=== PATIENT | female | born 1940 | race Caucasian/White ===

== ENCOUNTER 2017-03-31 12:57 | Day surgery (SDC) | payer MEDICARE, OTHER ==
[~2017-03-31] VITALS: Ht 157.5 cm; Wt 62.3 kg
[~2017-03-31 12:57] MED LIST: BUSP10TA11 PO; FENO145T38 PO; GABA-338 PO; HYDR1TAB PO; METH500T PO; OLME1TAB22 PO; RABE20TA25 PO; VERA180T PO; WEL625T PO; ZOC40T PO; ZOF4T PO
[2017-03-31 13:10] VITALS: BP 192/85
[2017-03-31] MEDS ORDERED: fentaNYL/PF 50MCG/1 ML 2ML syringe ONE (13:29)
[2017-03-31] MEDS ORDERED: MIDAZolam 5mg/ml 2ml vial ONE (13:29)
[2017-03-31] MEDS ORDERED: LISI-600 PO (13:36)
[2017-03-31] MEDS ORDERED: HYDR-3972 PO (13:37)
[2017-03-31] MEDS ORDERED: DULO-31 PO (13:37)
[2017-03-31 14:05] VITALS: BP 145/48
[2017-03-31 14:15] VITALS: BP 166/45
[2017-03-31 14:25] VITALS: BP 136/96
== END 2017-03-31 15:00 | disposition home or self-care (01) ==
LOC: GI LAB 12:57
PROVIDERS: ATTEND Internal Medicine Gastroenterology
DX: D12.0 Benign neoplasm of cecum (principal); K64.8 Other hemorrhoids; K57.30 Diverticulosis of large intestine without perforation or abscess without bleeding
CPT/HCPCS: 45380; G0500; J2250; J3010; A4620

== ENCOUNTER 2017-12-28 21:55 | Inpatient (IN) | payer MEDICARE, OTHER ==
[~2017-12-28] VITALS: Ht 157.5 cm; Wt 66.8 kg
[~2017-12-28 21:55] MED LIST changes: -BUSP10TA11 PO; +DULO-31 PO; -FENO145T38 PO; -GABA-338 PO; +HYDR-3972 PO; -HYDR1TAB PO; +LISI-600 PO; -OLME1TAB22 PO; -RABE20TA25 PO; -WEL625T PO; -ZOC40T PO; -ZOF4T PO
[2017-12-28 22:28] LABS: BASOPHILS # (AUTO) 0.1 X10'3 (0-0.2); BASOPHILS % (AUTO) 1.2 % (0-1); EOSINOPHILS # (AUTO) 0.2 X10'3 (0-0.9); EOSINOPHILS % (AUTO) 1.8 % (0-6); HEMATOCRIT 45.3 % (35.0-45.0); LYMPHOCYTES # (AUTO) 2.3 X10'3 (1.1-4.8); LYMPHOCYTES % (AUTO) 19.4 % (21-51); MEAN CORPUSCULAR HEMOGLOBIN 29.4 PG (27.0-31.0); MEAN PLATELET VOLUME 8.8 FL (7.4-10.4); MONOCYTES # (AUTO) 0.9 X10'3 (0-0.9); MONOCYTES % (AUTO) 7.6 % (2-12); NEUTROPHILS # (AUTO) 8.4 X10'3 (1.8-7.7); PLATELET COUNT 295 X10'3 (140-440); RED BLOOD COUNT 5.09 X10'6 (4.20-5.60); RED CELL DISTRIBUTION WIDTH 15.3 % (11.5-14.5)
[2017-12-28 22:44] LABS: ALANINE AMINOTRANSFERASE 24 U/L (12-78); ALBUMIN/GLOBULIN RATIO 0.8 (1.1-1.5); ALKALINE PHOSPHATASE 107 IU/L (46-116); ANION GAP 9 (8-16); ASPARTATE AMINO TRANSFERASE 12 U/L (10-37); BILIRUBIN,TOTAL 0.2 MG/DL (0.1-1.0); BLOOD UREA NITROGEN 14 MG/DL (7-18); BUN/CREATININE RATIO 18.2 (6.6-38.0); CALCIUM 9.4 MG/DL (8.5-10.1); CHLORIDE 103 MMOL/L (99-107); CREATININE 0.77 MG/DL (0.40-0.90); GLUCOSE 152 MG/DL (70-104); POTASSIUM 3.9 MMOL/L (3.5-5.1); SODIUM 140 MMOL/L (135-145); TOTAL CARBON DIOXIDE 27.8 MMOL/L (24-32); eGFR 73 ML/MIN
[2017-12-28 22:48] LABS: PARTIAL THROMBOPLASTIN TIME 28 SECONDS (22-32); PROTHROMBIN TIME 10.2 SECONDS (9.0-12.0)
[2017-12-29] VITALS (13 sets, daily range): BP systolic 109–157; BP diastolic 35–58
[2017-12-29] MEDS ORDERED: cyclobenzaprine 10mg tablet PO ONE (00:35)
[2017-12-29] MEDS ORDERED: OSC500T PO (01:27)
[2017-12-29] MEDS ORDERED: AMIT-189 PO (01:27)
[2017-12-29] MEDS ORDERED: MAGN500C16 PO (01:27)
[2017-12-29] MEDS ORDERED: heparin 10,000 units/1 ML INJ IV PRN (02:05)
[2017-12-29] MEDS ORDERED: heparin 10,000 units/1 ML INJ IV ONE ×2 (02:05→02:10)
[2017-12-29] MEDS: aspirin 81mg tab.chew PO ONE ×2 (02:05→02:53)
[2017-12-29] MEDS ORDERED: normal saline 1000ml 1,000 ML IV SCH (02:09)
[2017-12-29] MEDS ORDERED: magnesium hydroxide 30ml (MOM) UD suspension PO PRN (02:10)
[2017-12-29] MEDS ORDERED: acetaminophen 325mg tablet PO PRN (02:10)
[2017-12-29] MEDS ORDERED: ondansetron/PF 4mg/2ml inj IV PRN (02:10)
[2017-12-29] MEDS ORDERED: mag hydrox/Alum hydrox/simeth 30ml oral suspension PO PRN (02:10)
[2017-12-29] MEDS ORDERED: morphine 2 MG/ML inj. syringe IV PRN (02:10)
[2017-12-29] MEDS ORDERED: metoclopramide 5 mg/ml inj IV PRN (02:10)
[2017-12-29] MEDS ORDERED: HYDROmorphone 1 mg/ml syringe IV PRN (02:10)
[2017-12-29] MEDS ORDERED: bisacodyl 10mg suppository rectal RC PRN (02:10)
[2017-12-29] MEDS ORDERED: acetaminophen 650mg rectal suppository RC PRN (02:10)
[2017-12-29] MEDS ORDERED: diphenhydrAMINE 25mg capsule PO PRN (02:10)
[2017-12-29] MEDS ORDERED: HYDROcodone/acetaminophen 10/325mg tab PO PRN (02:10)
[2017-12-29] MEDS ORDERED: cyclobenzaprine 10mg tablet PO PRN (02:15)
[2017-12-29] MEDS ORDERED: nicotine 21mg patch - 24 hr TD ONE (02:30)
[2017-12-29] MEDS ORDERED: aminophylline 250mg/10ml inj. IV PRN (02:35)
[2017-12-29] MEDS ORDERED: nitroGLYCERIN 0.4mg SUBLingual tab SL PRN (02:35)
[2017-12-29] MEDS ORDERED: metoprolol tartrate 1mg/ml inj IV PRN (02:35)
[2017-12-29] MEDS ORDERED: regadenoson 0.4mg/5ml syringe IV PRN (02:35)
[2017-12-29 03:01] LABS: CHOLESTEROL 245 MG/DL (0-200); HDL CHOLESTEROL 41 MG/DL (35-60); LDL CHOLESTEROL 172 MG/DL (50-100); PHOSPHORUS 4.4 MG/DL (2.3-4.5); TRIGLYCERIDES 230 MG/DL (20-135)
[2017-12-29] MEDS: heparin 25,000 UNIT/250ml bag 250 ML IV SCH ×3 (03:02→11:30)
[2017-12-29] MEDS ORDERED: verapamil SR 180mg tablet PO SCH (08:00)
[2017-12-29] MEDS: docusate sod 100mg capsule PO SCH ×2 (08:00→20:00)
[2017-12-29] MEDS: nitroGLYCERIN 0.2mg/hour patch TD SCH (08:00)
[2017-12-29] MEDS ORDERED: aminophylline inj. 10 ML IV ONE (09:26)
[2017-12-29] MEDS ORDERED: regadenoson 0.4mg/5ml syringe IV ONE (09:26)
[2017-12-29] MEDS: aspirin 81mg tab.chew PO SCH ×2 (11:57→12:10)
[2017-12-29] MEDS: lisinopril 20mg tablet PO SCH ×2 (12:02→12:20)
[2017-12-29] MEDS ORDERED: temazepam 15mg capsule PO PRN (21:00)
[2017-12-29] MEDS: famotidine 20mg tablet PO SCH (21:50)
[2017-12-29] MEDS: verapamil SR 180mg tablet PO SCH (21:52)
[2017-12-30] VITALS (9 sets, daily range): BP systolic 110–176; BP diastolic 41–58
[2017-12-30] MEDS: heparin 25,000 UNIT/250ml bag 250 ML IV SCH ×2 (01:44→08:03)
[2017-12-30 01:48] LABS: BASOPHILS # (AUTO) 0.1 X10'3 (0-0.2); BASOPHILS % (AUTO) 1.1 % (0-1); EOSINOPHILS # (AUTO) 0.2 X10'3 (0-0.9); EOSINOPHILS % (AUTO) 2.7 % (0-6); HEMATOCRIT 41.3 % (35.0-45.0); HEMOGLOBIN 13.8 g/dl (12.0-16.0); LYMPHOCYTES # (AUTO) 2.8 X10'3 (1.1-4.8); LYMPHOCYTES % (AUTO) 32.4 % (21-51); MEAN CORPUSCULAR HEMOGLOBIN 29.8 PG (27.0-31.0); MEAN CORPUSCULAR HGB CONC 33.4 % (33.0-36.5); MEAN PLATELET VOLUME 9.1 FL (7.4-10.4); MONOCYTES # (AUTO) 0.7 X10'3 (0-0.9); MONOCYTES % (AUTO) 8.5 % (2-12); NEUTROPHILS # (AUTO) 4.9 X10'3 (1.8-7.7); NEUTROPHILS % (AUTO) 55.3 % (42-75); PLATELET COUNT 257 X10'3 (140-440); RED BLOOD COUNT 4.63 X10'6 (4.20-5.60); WHITE BLOOD COUNT 8.7 X10'3 (4.5-11.0)
[2017-12-30 02:02] LABS: ALANINE AMINOTRANSFERASE 25 U/L (12-78); ALBUMIN 2.5 G/DL (3.4-5.0); ALBUMIN/GLOBULIN RATIO 0.7 (1.1-1.5); ALKALINE PHOSPHATASE 96 IU/L (46-116); ANION GAP 7 (8-16); ASPARTATE AMINO TRANSFERASE 16 U/L (10-37); BILIRUBIN,TOTAL 0.2 MG/DL (0.1-1.0); BLOOD UREA NITROGEN 19 MG/DL (7-18); CALCIUM 8.8 MG/DL (8.5-10.1); CHLORIDE 105 MMOL/L (99-107); CREATININE 0.73 MG/DL (0.40-0.90); GLUCOSE 98 MG/DL (70-104); POTASSIUM 4.1 MMOL/L (3.5-5.1); SODIUM 141 MMOL/L (135-145); TOTAL CARBON DIOXIDE 29.5 MMOL/L (24-32); TOTAL PROTEIN 6.1 G/DL (6.4-8.2); eGFR 78 ML/MIN
[2017-12-30] MEDS: lisinopril 20mg tablet PO SCH (07:45)
[2017-12-30] MEDS: atorvastatin 20mg tablet PO SCH (07:46)
[2017-12-30] MEDS: docusate sod 100mg capsule PO SCH ×2 (08:00→19:20)
[2017-12-30] MEDS: nitroGLYCERIN 0.2mg/hour patch TD SCH (08:00)
[2017-12-30] MEDS ORDERED: atorvastatin 20mg tablet PO SCH (08:00)
[2017-12-30] MEDS ORDERED: midazolam 2 mg/2 ml injection ONE ×2 (10:24→12:21)
[2017-12-30] MEDS ORDERED: iohexol 350 MG/ML 50ML vial IV ONE (10:24)
[2017-12-30] MEDS ORDERED: LIDOcaine 1% 30ml preserv. free vial ONE (10:24)
[2017-12-30] MEDS ORDERED: heparin 1,000unit/ml 10ml vial 10 ML ONE (10:24)
[2017-12-30] MEDS ORDERED: iohexol 350MG/ML 100ml bottle IV ONE ×2 (10:24→11:49)
[2017-12-30] MEDS ORDERED: nitroGLYCERIN-Tridil 50MG/D5W 250 ML IV ONE (10:24)
[2017-12-30] MEDS ORDERED: fentaNYL/PF 50MCG/1 ML 2ML syringe ONE (10:24)
[2017-12-30] MEDS ORDERED: verapamil 2.5 mg/ml inj IV ONE (11:29)
[2017-12-30] MEDS ORDERED: ticagrelor 90mg tablet ONE (11:59)
[2017-12-30] MEDS ORDERED: atropine 0.1mg/ml 10ml syringe ONE (12:04)
[2017-12-30] MEDS ORDERED: morphine 2 MG/ML inj. syringe IV PRN (13:20)
[2017-12-30] MEDS ORDERED: cyclobenzaprine 10mg tablet PO PRN (13:25)
[2017-12-30] MEDS ORDERED: HYDROcodone/acetaminophen 10/325mg tab PO PRN ×4 (13:25→13:30)
[2017-12-30] MEDS ORDERED: normal saline 1000ml 1,000 ML IV ONE (13:35)
[2017-12-30] MEDS ORDERED: aspirin 81mg tab.chew PO ONE (14:10)
[2017-12-30] MEDS: cyclobenzaprine 10mg tablet PO PRN ×2 (14:54→20:59)
[2017-12-30] MEDS: famotidine 20mg tablet PO SCH (20:58)
[2017-12-30] MEDS: verapamil SR 180mg tablet PO SCH (20:58)
[2017-12-31 06:00] VITALS: BP 132/42
[2017-12-31 06:03] LABS: BASOPHILS % (AUTO) 0.2 % (0-1); EOSINOPHILS # (AUTO) 0.4 X10'3 (0-0.9); EOSINOPHILS % (AUTO) 3.8 % (0-6); HEMATOCRIT 40.3 % (35.0-45.0); HEMOGLOBIN 13.3 g/dl (12.0-16.0); LYMPHOCYTES # (AUTO) 1.7 X10'3 (1.1-4.8); LYMPHOCYTES % (AUTO) 16.9 % (21-51); MEAN CORPUSCULAR HEMOGLOBIN 29.5 PG (27.0-31.0); MEAN CORPUSCULAR VOLUME 89.3 FL (78-98); MEAN PLATELET VOLUME 8.9 FL (7.4-10.4); MONOCYTES # (AUTO) 0.9 X10'3 (0-0.9); MONOCYTES % (AUTO) 9.4 % (2-12); NEUTROPHILS % (AUTO) 69.7 % (42-75); PLATELET COUNT 242 X10'3 (140-440); RED BLOOD COUNT 4.52 X10'6 (4.20-5.60); RED CELL DISTRIBUTION WIDTH 14.7 % (11.5-14.5)
[2017-12-31 06:30] LABS: ALANINE AMINOTRANSFERASE 27 U/L (12-78); ALBUMIN 2.5 G/DL (3.4-5.0); ALBUMIN/GLOBULIN RATIO 0.7 (1.1-1.5); ALKALINE PHOSPHATASE 94 IU/L (46-116); ANION GAP 8 (8-16); ASPARTATE AMINO TRANSFERASE 41 U/L (10-37); BILIRUBIN,TOTAL 0.4 MG/DL (0.1-1.0); BLOOD UREA NITROGEN 11 MG/DL (7-18); CALCIUM 8.8 MG/DL (8.5-10.1); CHLORIDE 105 MMOL/L (99-107); CREATININE 0.61 MG/DL (0.40-0.90); GLUCOSE 97 MG/DL (70-104); SODIUM 140 MMOL/L (135-145); TOTAL CARBON DIOXIDE 27.1 MMOL/L (24-32); TOTAL PROTEIN 6.1 G/DL (6.4-8.2); eGFR > 90 ML/MIN
[2017-12-31] MEDS: docusate sod 100mg capsule PO SCH ×2 (08:00→20:00)
[2017-12-31] MEDS: nitroGLYCERIN 0.2mg/hour patch TD SCH (08:00)
[2017-12-31] MEDS: aspirin 81mg tablet.DR PO SCH (08:08)
[2017-12-31] MEDS: lisinopril 20mg tablet PO SCH (08:08)
[2017-12-31] MEDS: atorvastatin 20mg tablet PO SCH (08:09)
[2017-12-31] MEDS ORDERED: ticagrelor 90mg tablet PO ONE ×3 (10:35→12:35)
[2017-12-31 11:00] VITALS: BP 141/46
[2017-12-31] MEDS: normal saline 1000ml 1,000 ML IV SCH ×2 (12:00→22:11)
[2017-12-31 15:00] VITALS: BP 139/55
[2017-12-31 19:00] VITALS: BP 151/52
[2017-12-31] MEDS: cyclobenzaprine 10mg tablet PO PRN (22:10)
[2017-12-31] MEDS: verapamil SR 180mg tablet PO SCH (22:10)
[2017-12-31] MEDS: famotidine 20mg tablet PO SCH (22:10)
[2017-12-31] MEDS: ticagrelor 90mg tablet PO SCH (22:11)
[2017-12-31 23:00] VITALS: BP 152/55
[2018-01-01 03:00] VITALS: BP 150/54
[2018-01-01 06:52] LABS: BASOPHILS % (AUTO) 0.3 % (0-1); EOSINOPHILS # (AUTO) 0.3 X10'3 (0-0.9); EOSINOPHILS % (AUTO) 2.7 % (0-6); HEMATOCRIT 38.6 % (35.0-45.0); HEMOGLOBIN 12.8 g/dl (12.0-16.0); LYMPHOCYTES # (AUTO) 1.2 X10'3 (1.1-4.8); LYMPHOCYTES % (AUTO) 10.5 % (21-51); MEAN CORPUSCULAR HEMOGLOBIN 29.3 PG (27.0-31.0); MEAN CORPUSCULAR HGB CONC 33.1 % (33.0-36.5); MEAN CORPUSCULAR VOLUME 88.5 FL (78-98); MEAN PLATELET VOLUME 9.4 FL (7.4-10.4); MONOCYTES % (AUTO) 8.6 % (2-12); NEUTROPHILS # (AUTO) 9.1 X10'3 (1.8-7.7); NEUTROPHILS % (AUTO) 77.9 % (42-75); PLATELET COUNT 238 X10'3 (140-440); RED BLOOD COUNT 4.37 X10'6 (4.20-5.60); RED CELL DISTRIBUTION WIDTH 14.4 % (11.5-14.5); WHITE BLOOD COUNT 11.7 X10'3 (4.5-11.0)
[2018-01-01 07:00] VITALS: BP 155/42
[2018-01-01 07:16] LABS: ALANINE AMINOTRANSFERASE 24 U/L (12-78); ALBUMIN 2.6 G/DL (3.4-5.0); ALBUMIN/GLOBULIN RATIO 0.7 (1.1-1.5); ALKALINE PHOSPHATASE 102 IU/L (46-116); ANION GAP 9 (8-16); ASPARTATE AMINO TRANSFERASE 30 U/L (10-37); BILIRUBIN,TOTAL 0.7 MG/DL (0.1-1.0); BLOOD UREA NITROGEN 8 MG/DL (7-18); BUN/CREATININE RATIO 14.5 (6.6-38.0); CALCIUM 8.6 MG/DL (8.5-10.1); CHLORIDE 107 MMOL/L (99-107); CREATININE 0.55 MG/DL (0.40-0.90); GLUCOSE 95 MG/DL (70-104); POTASSIUM 3.5 MMOL/L (3.5-5.1); SODIUM 142 MMOL/L (135-145); TOTAL CARBON DIOXIDE 25.6 MMOL/L (24-32); TOTAL PROTEIN 6.4 G/DL (6.4-8.2); eGFR > 90 ML/MIN
[2018-01-01] MEDS: lisinopril 20mg tablet PO SCH (07:55)
[2018-01-01] MEDS: atorvastatin 20mg tablet PO SCH (07:55)
[2018-01-01] MEDS: ticagrelor 90mg tablet PO SCH ×2 (07:56→21:08)
[2018-01-01] MEDS: aspirin 81mg tablet.DR PO SCH (07:56)
[2018-01-01] MEDS: docusate sod 100mg capsule PO SCH (08:00)
[2018-01-01] MEDS: nitroGLYCERIN 0.2mg/hour patch TD SCH (08:00)
[2018-01-01] MEDS: normal saline 1000ml 1,000 ML IV SCH (08:03)
[2018-01-01] MEDS ORDERED: iohexol 350 MG/ML 50ML vial IV ONE (11:12)
[2018-01-01] MEDS ORDERED: iohexol 350MG/ML 100ml bottle IV ONE (11:12)
[2018-01-01 12:30] VITALS: BP 136/53
[2018-01-01] MEDS ORDERED: loperamide 2mg capsule PO ONE (14:30)
[2018-01-01] MEDS: loperamide 2mg capsule PO SCH ×2 (14:36→20:00)
[2018-01-01 15:00] VITALS: BP 108/36
[2018-01-01 18:00] VITALS: BP 127/39
[2018-01-01] MEDS: verapamil SR 180mg tablet PO SCH (21:08)
[2018-01-01] MEDS: famotidine 20mg tablet PO SCH (21:08)
[2018-01-01 23:00] VITALS: BP 153/49
[2018-01-02 03:00] VITALS: BP 135/48
[2018-01-02 06:49] LABS: BASOPHILS % (AUTO) 0.3 % (0-1); EOSINOPHILS # (AUTO) 0.4 X10'3 (0-0.9); HEMATOCRIT 39.9 % (35.0-45.0); HEMOGLOBIN 13.1 g/dl (12.0-16.0); LYMPHOCYTES # (AUTO) 1.4 X10'3 (1.1-4.8); LYMPHOCYTES % (AUTO) 11.7 % (21-51); MEAN CORPUSCULAR HEMOGLOBIN 29.4 PG (27.0-31.0); MEAN CORPUSCULAR HGB CONC 32.8 % (33.0-36.5); MEAN CORPUSCULAR VOLUME 89.5 FL (78-98); MEAN PLATELET VOLUME 9.4 FL (7.4-10.4); MONOCYTES # (AUTO) 0.9 X10'3 (0-0.9); MONOCYTES % (AUTO) 7.3 % (2-12); NEUTROPHILS # (AUTO) 9.6 X10'3 (1.8-7.7); NEUTROPHILS % (AUTO) 77.7 % (42-75); PLATELET COUNT 246 X10'3 (140-440); RED BLOOD COUNT 4.46 X10'6 (4.20-5.60); RED CELL DISTRIBUTION WIDTH 14.5 % (11.5-14.5); WHITE BLOOD COUNT 12.4 X10'3 (4.5-11.0)
[2018-01-02 06:56] LABS: ALANINE AMINOTRANSFERASE 29 U/L (12-78); ALBUMIN 2.7 G/DL (3.4-5.0); ALBUMIN/GLOBULIN RATIO 0.7 (1.1-1.5); ALKALINE PHOSPHATASE 93 IU/L (46-116); ANION GAP 12 (8-16); ASPARTATE AMINO TRANSFERASE 22 U/L (10-37); BILIRUBIN,TOTAL 0.7 MG/DL (0.1-1.0); BLOOD UREA NITROGEN 8 MG/DL (7-18); BUN/CREATININE RATIO 13.1 (6.6-38.0); CHLORIDE 106 MMOL/L (99-107); CREATININE 0.61 MG/DL (0.40-0.90); GLUCOSE 139 MG/DL (70-104); POTASSIUM 3.9 MMOL/L (3.5-5.1); SODIUM 142 MMOL/L (135-145); TOTAL CARBON DIOXIDE 24.2 MMOL/L (24-32); TOTAL PROTEIN 6.6 G/DL (6.4-8.2); eGFR > 90 ML/MIN
[2018-01-02 07:00] VITALS: BP 114/38
[2018-01-02] MEDS: ticagrelor 90mg tablet PO SCH ×2 (07:48→20:34)
[2018-01-02] MEDS: lisinopril 20mg tablet PO SCH (07:48)
[2018-01-02] MEDS: aspirin 81mg tablet.DR PO SCH (07:48)
[2018-01-02] MEDS: loperamide 2mg capsule PO SCH ×2 (07:48→20:22)
[2018-01-02] MEDS: atorvastatin 20mg tablet PO SCH (07:48)
[2018-01-02 07:49] VITALS: BP 116/35
[2018-01-02 11:00] VITALS: BP 121/40
[2018-01-02 15:00] VITALS: BP 113/36
[2018-01-02 16:13] LABS: CLARITY,URINE SLIGHTLY CLOUDY (Clear); COLOR,URINE YELLOW (Yellow); GLUCOSE, URINE NEGATIVE (Neg); KETONES,URINE NEGATIVE (Neg); LEUKOCYTE ESTERASE ,URINE NEGATIVE (Neg); NITRITES, URINE NEGATIVE (Neg); OCCULT BLOOD,URINE NEGATIVE (Neg); PROTEIN,URINE NEGATIVE (Neg); UA COLLECTION TYPE CLN CATCH MIDSTREAM; UROBILINOGEN,URINE 0.2 E.U/dL (0.2-1.0)
[2018-01-02 16:23] LABS: BACTERIA,URINE 3+ /HPF (Neg); COARSE GRANULAR CAST 0-3 /LPF (NEGATIVE); MUCUS STRANDS MANY /LPF (Neg); RBC,URINE 0-2 /HPF (0-2); SQUAMOUS EPITHELIAL CELL,UR MODERATE /LPF (FEW)
[2018-01-02] MEDS ORDERED: cefazolin/dext.iso 2gm/50ml 50 ML IV ONE (17:30)
[2018-01-02] MEDS ORDERED: ringers solution, lacted 1,000 ML IV ONE (19:13)
[2018-01-02] MEDS: verapamil SR 180mg tablet PO SCH (20:22)
[2018-01-02] MEDS: famotidine 20mg tablet PO SCH (20:22)
[2018-01-02 23:00] VITALS: BP 136/33
[2018-01-03] VITALS (20 sets, daily range): BP systolic 96–133; BP diastolic 37–60
[2018-01-03] MEDS ORDERED: famotidine 20mg tablet PO ONE (06:00)
[2018-01-03 06:49] LABS: BASOPHILS % (AUTO) 0.4 % (0-1); EOSINOPHILS # (AUTO) 0.4 X10'3 (0-0.9); EOSINOPHILS % (AUTO) 3.8 % (0-6); HEMATOCRIT 36.9 % (35.0-45.0); HEMOGLOBIN 12.2 g/dl (12.0-16.0); LYMPHOCYTES # (AUTO) 1.6 X10'3 (1.1-4.8); LYMPHOCYTES % (AUTO) 14.3 % (21-51); MEAN CORPUSCULAR HEMOGLOBIN 29.6 PG (27.0-31.0); MEAN CORPUSCULAR HGB CONC 33.1 % (33.0-36.5); MEAN CORPUSCULAR VOLUME 89.3 FL (78-98); MEAN PLATELET VOLUME 9.2 FL (7.4-10.4); MONOCYTES # (AUTO) 1.1 X10'3 (0-0.9); MONOCYTES % (AUTO) 9.4 % (2-12); NEUTROPHILS # (AUTO) 8.2 X10'3 (1.8-7.7); NEUTROPHILS % (AUTO) 72.1 % (42-75); PLATELET COUNT 268 X10'3 (140-440); RED BLOOD COUNT 4.13 X10'6 (4.20-5.60); RED CELL DISTRIBUTION WIDTH 14.5 % (11.5-14.5); WHITE BLOOD COUNT 11.4 X10'3 (4.5-11.0)
[2018-01-03 07:07] LABS: ALANINE AMINOTRANSFERASE 26 U/L (12-78); ALBUMIN 2.5 G/DL (3.4-5.0); ALBUMIN/GLOBULIN RATIO 0.6 (1.1-1.5); ALKALINE PHOSPHATASE 82 IU/L (46-116); ANION GAP 10 (8-16); ASPARTATE AMINO TRANSFERASE 15 U/L (10-37); BILIRUBIN,TOTAL 0.6 MG/DL (0.1-1.0); BLOOD UREA NITROGEN 10 MG/DL (7-18); BUN/CREATININE RATIO 16.9 (6.6-38.0); CALCIUM 8.8 MG/DL (8.5-10.1); CHLORIDE 108 MMOL/L (99-107); CREATININE 0.59 MG/DL (0.40-0.90); GLUCOSE 94 MG/DL (70-104); POTASSIUM 3.6 MMOL/L (3.5-5.1); SODIUM 144 MMOL/L (135-145); TOTAL CARBON DIOXIDE 25.7 MMOL/L (24-32); TOTAL PROTEIN 6.4 G/DL (6.4-8.2); eGFR > 90 ML/MIN
[2018-01-03] MEDS: loperamide 2mg capsule PO SCH ×2 (07:47→21:00)
[2018-01-03] MEDS: ticagrelor 90mg tablet PO SCH ×2 (07:48→21:00)
[2018-01-03] MEDS: atorvastatin 20mg tablet PO SCH (07:49)
[2018-01-03] MEDS: lisinopril 20mg tablet PO SCH (07:53)
[2018-01-03 07:56] LABS: ISTAT HGB ART 13.6 g/dl (12.0-16.0); ISTAT Hct ART 40 %PCV (35-48); ISTAT Hct MIX 40 %PCV (35-48); ISTAT O2 SATURATION ARTERIAL 96 % (95-98); ISTAT O2 SATURATION MIX VENOUS 64 % (60-80); ISTAT SOURCE ART; ISTAT SOURCE MIX
[2018-01-03] MEDS ORDERED: nitroGLYCERIN-Tridil 50MG/D5W 250 ML IV ONE (10:30)
[2018-01-03] MEDS ORDERED: sevoflurane 250ml liquid IH ONE (12:32)
[2018-01-03] MEDS ORDERED: rocuronium 10mg/ml inj IV ONE ×3 (12:32→14:04)
[2018-01-03] MEDS ORDERED: nitroGLYCERIN in D5W 50mg/250ml (Tridil) infusion IV ONE (12:32)
[2018-01-03] MEDS ORDERED: NORepinephrine bitartrate 8 MG in NS 250 ML BAG (32 mcg/ml) IV ONE (12:32)
[2018-01-03] MEDS ORDERED: naloxone 0.4 mg/ml inj ONE (12:32)
[2018-01-03] MEDS ORDERED: MIDAZolam 5mg/5ml vial ONE (12:35)
[2018-01-03] MEDS ORDERED: fentaNYL /PF 50mcg/ml 5ml ampule ONE ×2 (12:35→14:14)
[2018-01-03] MEDS ORDERED: propofol inj 20 ML IV ONE (12:37)
[2018-01-03] MEDS: heparin 10,000 units/1 ML INJ ONE ×2 (13:41→13:43)
[2018-01-03] MEDS ORDERED: heparin 1,000unit/ml 10ml vial 10 ML ONE (14:06)
[2018-01-03] MEDS ORDERED: metoprolol tartrate 1mg/ml inj IV ONE (14:19)
[2018-01-03] MEDS ORDERED: proCHLORperazine 10 MG/2 ml inj IV PRN (14:25)
[2018-01-03] MEDS ORDERED: ringers solution, lacted 1,000 ML IV SCH (14:25)
[2018-01-03] MEDS ORDERED: morphine 4 MG/ML inj SYRINge IV PRN ×2 (14:25)
[2018-01-03] MEDS ORDERED: ondansetron/PF 4mg/2ml inj IV PRN ×2 (14:25→20:00)
[2018-01-03] MEDS ORDERED: meperidine/PF 25mg/ml syringe IV PRN ×3 (14:25)
[2018-01-03] MEDS ORDERED: furosemide 40mg/4ml inj ONE (15:49)
[2018-01-03] MEDS ORDERED: albumin (Human) 5% 250ml 250 ML IV ONE ×4 (16:58→21:35)
[2018-01-03] MEDS ORDERED: sodium bicarbonate 1 MEQ/1 ml inj ONE (17:42)
[2018-01-03] MEDS ORDERED: gentamicin 40 MG/1 ML inj ONE (17:49)
[2018-01-03] MEDS ORDERED: clindamycin phosphate 150mg/ml inj. ONE (17:49)
[2018-01-03 18:06] LABS: ABG BASE EXCESS -5.4 mmol/L (-2.0-3.0); ABG HCO3 21.5 mmol/L (22.0-26.0); ABG OXYGEN SATURATION 97.9 % (95-98); ABG PCO2 (T) 50.4 mmHg (32.0-45.0); ABG PH (T) 7.247 (7.350-7.450); ABG PO2 (T) 161.3 mmHg (83-108); FCOHb 0.2 % (0.5-1.5); FMetHb 0.7 % (0.3-1.12); TOTAL HEMOGLOBIN 6.7 G/dl (12.0-16.0)
[2018-01-03 18:18] LABS: BASOPHILS % (AUTO) 0.2 % (0-1); EOSINOPHILS # (AUTO) 0.1 X10'3 (0-0.9); EOSINOPHILS % (AUTO) 0.6 % (0-6); LYMPHOCYTES # (AUTO) 0.9 X10'3 (1.1-4.8); LYMPHOCYTES % (AUTO) 5.1 % (21-51); MEAN CORPUSCULAR HEMOGLOBIN 29.3 PG (27.0-31.0); MEAN CORPUSCULAR HGB CONC 32.5 % (33.0-36.5); MEAN PLATELET VOLUME 8.6 FL (7.4-10.4); MONOCYTES % (AUTO) 5.6 % (2-12); NEUTROPHILS # (AUTO) 15.7 X10'3 (1.8-7.7); NEUTROPHILS % (AUTO) 88.5 % (42-75); PLATELET COUNT 169 X10'3 (140-440); RED BLOOD COUNT 2.17 X10'6 (4.20-5.60); RED CELL DISTRIBUTION WIDTH 14.5 % (11.5-14.5); WHITE BLOOD COUNT 17.8 X10'3 (4.5-11.0)
[2018-01-03] MEDS: aspirin 81mg tablet.DR PO SCH (18:30)
[2018-01-03 18:36] LABS: HEMATOCRIT 19.5 % (35.0-45.0); HEMOGLOBIN 6.3 g/dl (12.0-16.0)
[2018-01-03 18:54] LABS: TOTAL CELLS COUNTED 100
[2018-01-03 18:56] LABS: PLATELET ESTIMATE NORMAL
[2018-01-03 18:59] LABS: TOXIC GRANULATION 1+
[2018-01-03] MEDS ORDERED: propofol 1000mg/100ml bottle 100 ML IV PRN (19:39)
[2018-01-03 19:42] LABS: BASOPHILS % (AUTO) 0.2 % (0-1); EOSINOPHILS # (AUTO) 0.3 X10'3 (0-0.9); EOSINOPHILS % (AUTO) 1.6 % (0-6); HEMATOCRIT 29.6 % (35.0-45.0); HEMOGLOBIN 9.6 g/dl (12.0-16.0); LYMPHOCYTES % (AUTO) 5.3 % (21-51); MEAN CORPUSCULAR HEMOGLOBIN 29.6 PG (27.0-31.0); MEAN CORPUSCULAR HGB CONC 32.5 % (33.0-36.5); MEAN CORPUSCULAR VOLUME 91.2 FL (78-98); MEAN PLATELET VOLUME 9.1 FL (7.4-10.4); MONOCYTES # (AUTO) 1.7 X10'3 (0-0.9); MONOCYTES % (AUTO) 8.5 % (2-12); NEUTROPHILS # (AUTO) 16.5 X10'3 (1.8-7.7); NEUTROPHILS % (AUTO) 84.4 % (42-75); PLATELET COUNT 186 X10'3 (140-440); RED BLOOD COUNT 3.24 X10'6 (4.20-5.60); RED CELL DISTRIBUTION WIDTH 14.3 % (11.5-14.5); WHITE BLOOD COUNT 19.5 X10'3 (4.5-11.0)
[2018-01-03 19:46] LABS: ABG BASE EXCESS -9.1 mmol/L (-2.0-3.0); ABG HCO3 18.3 mmol/L (22.0-26.0); ABG OXYGEN SATURATION 98.4 % (95-98); ABG PCO2 (T) 43.4 mmHg (32.0-45.0); ABG PH (T) 7.236 (7.350-7.450); ABG PO2 (T) 168.2 mmHg (83-108); FCOHb 0.3 % (0.5-1.5); FMetHb 0.3 % (0.3-1.12); FO2Hb 97.8 % (94-100); MINUTE VOLUME 8 L/min; PATIENT TEMPERATURE 35.8; PEEP 5 cm H2O; RESPIRATORY RATE 14 b/min; RESPIRATORY RATE (OBSERVED) 14 b/min; TIDAL VOLUME 500 mL; TOTAL HEMOGLOBIN 11.2 G/dl (12.0-16.0)
[2018-01-03 19:57] LABS: ALANINE AMINOTRANSFERASE 19 U/L (12-78); ALBUMIN 2.5 G/DL (3.4-5.0); ALBUMIN/GLOBULIN RATIO 1.8 (1.1-1.5); ALKALINE PHOSPHATASE 32 IU/L (46-116); ANION GAP 11 (8-16); ASPARTATE AMINO TRANSFERASE 25 U/L (10-37); BLOOD UREA NITROGEN 13 MG/DL (7-18); BUN/CREATININE RATIO 18.3 (6.6-38.0); CALCIUM 6.5 MG/DL (8.5-10.1); CHLORIDE 117 MMOL/L (99-107); CREATININE 0.71 MG/DL (0.40-0.90); GLUCOSE 199 MG/DL (70-104); POTASSIUM 3.9 MMOL/L (3.5-5.1); SODIUM 148 MMOL/L (135-145); TOTAL CARBON DIOXIDE 20.3 MMOL/L (24-32); TOTAL PROTEIN 3.9 G/DL (6.4-8.2); eGFR 80 ML/MIN
[2018-01-03] MEDS: FENTANYL-0.9 % NACL/PF 100 ML IV PRN (20:27)
[2018-01-03] MEDS: NORepinephrine 8 MG in normal saline 250ml IV soln IV SCH (21:00)
[2018-01-03] MEDS: famotidine 20mg tablet PO SCH (21:00)
[2018-01-03] MEDS: verapamil SR 180mg tablet PO SCH (21:00)
[2018-01-03] MEDS ORDERED: calcium gluconate inj. 1 GM in normal saline 100ml IV soln 90 ML IV PRN (21:35)
[2018-01-03] MEDS ORDERED: albumin (Human) 5% 250ml 500 ML IV ONE (21:38)
[2018-01-03] MEDS: albumin (Human) 5% 250ml 250 ML IV SCH ×2 (21:58→22:24)
[2018-01-03 22:41] LABS: INR 1.3 INR; PARTIAL THROMBOPLASTIN TIME 40 SECONDS (22-32); PROTHROMBIN TIME 12.6 SECONDS (9.0-12.0)
[2018-01-04] VITALS (35 sets, daily range): BP systolic 100–144; BP diastolic 32–60
[2018-01-04] MEDS: ceFAZolin 1GM/D5W- ADD-VANTAGE 50 ML IV SCH ×2 (00:45→08:06)
[2018-01-04 01:38] LABS: BASOPHILS # (AUTO) 0.1 X10'3 (0-0.2); BASOPHILS % (AUTO) 0.2 % (0-1); EOSINOPHILS # (AUTO) 0.3 X10'3 (0-0.9); EOSINOPHILS % (AUTO) 0.8 % (0-6); HEMATOCRIT 29.3 % (35.0-45.0); HEMOGLOBIN 9.9 g/dl (12.0-16.0); LYMPHOCYTES # (AUTO) 2.8 X10'3 (1.1-4.8); LYMPHOCYTES % (AUTO) 8.3 % (21-51); MEAN CORPUSCULAR HEMOGLOBIN 31.6 PG (27.0-31.0); MEAN CORPUSCULAR HGB CONC 33.8 % (33.0-36.5); MEAN CORPUSCULAR VOLUME 93.5 FL (78-98); MEAN PLATELET VOLUME 8.9 FL (7.4-10.4); MONOCYTES # (AUTO) 4.5 X10'3 (0-0.9); MONOCYTES % (AUTO) 13.2 % (2-12); NEUTROPHILS # (AUTO) 26.5 X10'3 (1.8-7.7); NEUTROPHILS % (AUTO) 77.5 % (42-75); PLATELET COUNT 177 X10'3 (140-440); RED BLOOD COUNT 3.13 X10'6 (4.20-5.60)
[2018-01-04 01:50] LABS: WHITE BLOOD COUNT 34.2 X10'3 (4.5-11.0)
[2018-01-04 01:59] LABS: TOTAL CELLS COUNTED 100
[2018-01-04 02:00] LABS: PLATELET ESTIMATE NORMAL
[2018-01-04 02:02] LABS: ALBUMIN 3.4 G/DL (3.4-5.0); ANION GAP 24 (8-16); BLOOD UREA NITROGEN 16 MG/DL (7-18); BUN/CREATININE RATIO 8.5 (6.6-38.0); CALCIUM 6.7 MG/DL (8.5-10.1); CHLORIDE 114 MMOL/L (99-107); CREATININE 1.89 MG/DL (0.40-0.90); GLUCOSE 215 MG/DL (70-104); POTASSIUM 4.7 MMOL/L (3.5-5.1); SODIUM 150 MMOL/L (135-145); eGFR 26 ML/MIN
[2018-01-04 02:11] LABS: PROTHROMBIN TIME 16.7 SECONDS (9.0-12.0); TOTAL CARBON DIOXIDE 12.3 MMOL/L (24-32)
[2018-01-04 02:12] LABS: INR 1.7 INR; PARTIAL THROMBOPLASTIN TIME 65 SECONDS (22-32)
[2018-01-04 03:26] LABS: ABG HCO3 8.3 mmol/L (22.0-26.0); ABG OXYGEN SATURATION 96.5 % (95-98); ABG PCO2 (T) 42.8 mmHg (32.0-45.0); ABG PH (T) 6.898 (7.350-7.450); ABG PO2 (T) 119.3 mmHg (83-108); FCOHb 0.3 % (0.5-1.5); FMetHb 0.2 % (0.3-1.12); MINUTE VOLUME 8 L/min; PEEP 5 cm H2O; RESPIRATORY RATE 14 b/min; RESPIRATORY RATE (OBSERVED) 14 b/min; TIDAL VOLUME 500 mL; TOTAL HEMOGLOBIN 10.4 G/dl (12.0-16.0)
[2018-01-04] MEDS ORDERED: sodium bicarbonate (8.4%) 1 mEq/ml syringe IV ONE (03:35)
[2018-01-04] MEDS: sodium bicarbonate (8.4%) inj. 150 MEQ in sodium chloride 0.45% 1,000 ML IV SCH ×2 (04:07→15:16)
[2018-01-04] MEDS: NORepinephrine 8 MG in normal saline 250ml IV soln IV SCH ×2 (05:14→15:40)
[2018-01-04] MEDS: loperamide 2mg capsule PO SCH ×2 (08:00→20:00)
[2018-01-04] MEDS: ticagrelor 90mg tablet PO SCH ×3 (08:00→21:10)
[2018-01-04] MEDS: atorvastatin 20mg tablet PO SCH ×2 (08:00→09:46)
[2018-01-04] MEDS: lisinopril 20mg tablet PO SCH (08:00)
[2018-01-04 08:01] LABS: ABG BASE EXCESS -15.6 mmol/L (-2.0-3.0); ABG HCO3 13.1 mmol/L (22.0-26.0); ABG OXYGEN SATURATION 95.8 % (95-98); ABG PCO2 (T) 41.4 mmHg (32.0-45.0); ABG PH (T) 7.114 (7.350-7.450); ABG PO2 (T) 94.3 mmHg (83-108); FCOHb 0.2 % (0.5-1.5); FLOW 40 L/min; FMetHb 0.2 % (0.3-1.12); FO2Hb 95.4 % (94-100); PATIENT TEMPERATURE 36.4; PEEP 5 cm H2O; RESPIRATORY RATE 15 b/min; TIDAL VOLUME 500 mL; TOTAL HEMOGLOBIN 9.8 G/dl (12.0-16.0)
[2018-01-04] MEDS: aspirin 81mg tablet.DR PO SCH (08:11)
[2018-01-04] MEDS ORDERED: albumin (Human) 5% 250ml 250 ML IV ONE ×2 (09:25)
[2018-01-04] MEDS: sodium bicarbonate (8.4%) inj. 100 MEQ in dextrose 5%-water 1,000 ML IV SCH (16:51)
[2018-01-04] MEDS: FENTANYL-0.9 % NACL/PF 100 ML IV PRN (18:49)
[2018-01-04] MEDS ORDERED: piperacillin/tazo 3.375gm/50ml 50 ML IV SCH (19:00)
[2018-01-04 19:41] LABS: OXYGEN SATURATION (MIXED VEN) 60.2 % (60-80); PO2 MIXED VENOUS (TEMP COR) 36.1 mmHg (35-46)
[2018-01-04 19:46] LABS: ABG BASE EXCESS -9.8 mmol/L (-2.0-3.0); ABG HCO3 15.5 mmol/L (22.0-26.0); ABG OXYGEN SATURATION 96.2 % (95-98); ABG PH (T) 7.306 (7.350-7.450); FCOHb 0.9 % (0.5-1.5); FMetHb 0.3 % (0.3-1.12); MINUTE VOLUME 13 L/min; PATIENT TEMPERATURE 37.5; PEEP 5 cm H2O; RESPIRATORY RATE 12 b/min; RESPIRATORY RATE (OBSERVED) 29 b/min; TIDAL VOLUME 500 mL; TOTAL HEMOGLOBIN 7.2 G/dl (12.0-16.0)
[2018-01-04] MEDS: verapamil SR 180mg tablet PO SCH (20:53)
[2018-01-04] MEDS: mineral oil/petrolatum ophthal oint EACHEYE SCH (21:09)
[2018-01-04] MEDS: famotidine/PF 10 mg/ml inj IV SCH (21:09)
[2018-01-05] VITALS (23 sets, daily range): BP systolic 94–153; BP diastolic 43–60
[2018-01-05] MEDS ORDERED: diatr meglu/diatrizoate 30ml oral sol.-(3 dose) bottle PO SCH ×2 (00:20→07:00)
[2018-01-05] MEDS: piperacillin/tazo 3.375gm/50ml 50 ML IV SCH ×3 (00:25→16:43)
[2018-01-05] MEDS: diatr meglu/diatrizoate 30ml oral sol.-(3 dose) bottle PO SCH ×2 (00:41→07:22)
[2018-01-05] MEDS: mineral oil/petrolatum ophthal oint EACHEYE SCH ×4 (02:00→19:55)
[2018-01-05] MEDS: FENTANYL-0.9 % NACL/PF 100 ML IV PRN ×2 (02:15→10:24)
[2018-01-05 03:06] LABS: ABG BASE EXCESS -3.1 mmol/L (-2.0-3.0); ABG HCO3 20.9 mmol/L (22.0-26.0); ABG OXYGEN SATURATION 94.5 % (95-98); ABG PCO2 (T) 34.1 mmHg (32.0-45.0); ABG PH (T) 7.406 (7.350-7.450); ABG PO2 (T) 80.7 mmHg (83-108); FCOHb 0.3 % (0.5-1.5); FMetHb 0.2 % (0.3-1.12); MINUTE VOLUME 9 L/min; PATIENT TEMPERATURE 37.2; PEEP 5 cm H2O; RESPIRATORY RATE 12 b/min; RESPIRATORY RATE (OBSERVED) 18 b/min; TIDAL VOLUME 500 mL
[2018-01-05] MEDS: sodium bicarbonate (8.4%) inj. 100 MEQ in dextrose 5%-water 1,000 ML IV SCH (03:53)
[2018-01-05 04:26] LABS: BASOPHILS % (AUTO) 0 % (0-1); EOSINOPHILS % (AUTO) 0 % (0-6); HEMATOCRIT 30.7 % (35.0-45.0); HEMOGLOBIN 10.2 g/dl (12.0-16.0); LYMPHOCYTES # (AUTO) 0.5 X10'3 (1.1-4.8); LYMPHOCYTES % (AUTO) 2.6 % (21-51); MEAN CORPUSCULAR HEMOGLOBIN 29.8 PG (27.0-31.0); MEAN CORPUSCULAR HGB CONC 33.3 % (33.0-36.5); MEAN CORPUSCULAR VOLUME 89.7 FL (78-98); MEAN PLATELET VOLUME 11.6 FL (7.4-10.4); MONOCYTES # (AUTO) 0.6 X10'3 (0-0.9); MONOCYTES % (AUTO) 3.1 % (2-12); NEUTROPHILS # (AUTO) 18.8 X10'3 (1.8-7.7); NEUTROPHILS % (AUTO) 94.3 % (42-75); PLATELET COUNT 93 X10'3 (140-440); RED BLOOD COUNT 3.42 X10'6 (4.20-5.60); RED CELL DISTRIBUTION WIDTH 14.9 % (11.5-14.5); WHITE BLOOD COUNT 19.9 X10'3 (4.5-11.0)
[2018-01-05 04:37] LABS: INR 2.3 INR; PARTIAL THROMBOPLASTIN TIME 32 SECONDS (22-32); PROTHROMBIN TIME 21.9 SECONDS (9.0-12.0)
[2018-01-05 04:44] LABS: ALBUMIN 2.6 G/DL (3.4-5.0); ANION GAP 14 (8-16); BLOOD UREA NITROGEN 42 MG/DL (7-18); BUN/CREATININE RATIO 13.8 (6.6-38.0); CHLORIDE 112 MMOL/L (99-107); CREATININE 3.04 MG/DL (0.40-0.90); GLUCOSE 166 MG/DL (70-104); POTASSIUM 3.7 MMOL/L (3.5-5.1); SODIUM 152 MMOL/L (135-145); TOTAL CARBON DIOXIDE 26.4 MMOL/L (24-32); eGFR 15 ML/MIN
[2018-01-05 04:48] LABS: CALCIUM 5.9 MG/DL (8.5-10.1)
[2018-01-05 04:58] LABS: TOTAL CELLS COUNTED 100
[2018-01-05 04:59] LABS: PLATELET ESTIMATE DECREASED
[2018-01-05 05:00] LABS: LARGE PLATELETS FEW
[2018-01-05] MEDS: lisinopril 20mg tablet PO SCH (08:00)
[2018-01-05] MEDS: loperamide 2mg capsule PO SCH ×2 (08:00→20:35)
[2018-01-05] MEDS: famotidine/PF 10 mg/ml inj IV SCH ×2 (08:24→20:30)
[2018-01-05] MEDS ORDERED: calcium chloride inj. 1,000 MG in normal saline 100ml IV soln 100 ML IV PRN (11:05)
[2018-01-05] MEDS: aspirin 81mg tablet.DR PO SCH (11:11)
[2018-01-05] MEDS: atorvastatin 20mg tablet PO SCH (11:11)
[2018-01-05] MEDS: ticagrelor 90mg tablet PO SCH ×2 (11:11→20:00)
[2018-01-05] MEDS ORDERED: magnesium 4gm in 100ml NS 100 ML IV PRN ×2 (11:25→14:10)
[2018-01-05 12:18] LABS: ALBUMIN 2.6 G/DL (3.4-5.0); ALBUMIN/GLOBULIN RATIO 1.9 (1.1-1.5); ALKALINE PHOSPHATASE 173 IU/L (46-116); ANION GAP 15 (8-16); BLOOD UREA NITROGEN 48 MG/DL (7-18); BUN/CREATININE RATIO 14.4 (6.6-38.0); CHLORIDE 110 MMOL/L (99-107); CREATININE 3.34 MG/DL (0.40-0.90); GLUCOSE 161 MG/DL (70-104); MAGNESIUM 1.4 MG/DL (1.5-2.4); PHOSPHORUS 5.4 MG/DL (2.3-4.5); PREALBUMIN 10.3 MG/DL (19-36); SODIUM 150 MMOL/L (135-145); TRIGLYCERIDES 62 MG/DL (20-135); eGFR 13 ML/MIN
[2018-01-05 12:32] LABS: ALANINE AMINOTRANSFERASE 4281 U/L (12-78); ASPARTATE AMINO TRANSFERASE > 7000 U/L (10-37); POTASSIUM 3.4 MMOL/L (3.5-5.1)
[2018-01-05 12:34] LABS: CALCIUM 5.6 MG/DL (8.5-10.1)
[2018-01-05] MEDS ORDERED: magnesium 2GM in 50ml NS 50 ML IV PRN (14:10)
[2018-01-05] MEDS ORDERED: albumin (human) 25% 100ml IV 100 ML IV ONE (14:25)
[2018-01-05 15:26] LABS: ABG BASE EXCESS -1.4 mmol/L (-2.0-3.0); ABG HCO3 21.9 mmol/L (22.0-26.0); ABG OXYGEN SATURATION 95.3 % (95-98); ABG PH (T) 7.442 (7.350-7.450); ABG PO2 (T) 84.6 mmHg (83-108); FCOHb 0.1 % (0.5-1.5); FMetHb 0.2 % (0.3-1.12); MINUTE VOLUME 10 L/min; PATIENT TEMPERATURE 37.5; PEEP 5 cm H2O; TOTAL HEMOGLOBIN 11.6 G/dl (12.0-16.0)
[2018-01-05] MEDS ORDERED: CADD PCA waste documentation MC SCH (15:50)
[2018-01-05] MEDS ORDERED: methylnaltrexone br 12mg/0.6ml inj***SubQ only SQ SCH (16:16)
[2018-01-05] MEDS: dextrose 5%-1/4 normal saline 1,000 ML IV SCH (16:30)
[2018-01-05] MEDS: HYDROmorphone/NS 1 mg/ml CADD 50 ML IV SCH ×5 (17:00→23:00)
[2018-01-05] MEDS ORDERED: nicotine 14mg patch - 24hr TD SCH (19:45)
[2018-01-05] MEDS ORDERED: Dextrose 10%-water IV solution 1,000 ML IV PRN (20:00)
[2018-01-05] MEDS ORDERED: magnesium Cl slow-release 64mg tablet PO PRN (20:00)
[2018-01-05] MEDS: metoclopramide 5 mg/ml inj IV SCH (20:35)
[2018-01-05] MEDS: verapamil SR 180mg tablet PO SCH (21:00)
[2018-01-05] MEDS ORDERED: ipratropium/albuterol 3ml nebule NEB PRN (22:25)
[2018-01-05 22:40] LABS: ABG OXYGEN SATURATION 88.9 % (95-98); ABG PCO2 (T) 41.1 mmHg (32.0-45.0); ABG PH (T) 7.369 (7.350-7.450); ABG PO2 (T) 64.7 mmHg (83-108); FCOHb 0.1 % (0.5-1.5); FLOW 5 L/min; FMetHb 0.2 % (0.3-1.12); FO2Hb 88.6 % (94-100); PATIENT TEMPERATURE 37.5; TOTAL HEMOGLOBIN 11.4 G/dl (12.0-16.0)
[2018-01-06] VITALS (9 sets, daily range): BP systolic 102–147; BP diastolic 41–61
[2018-01-06] MEDS: piperacillin/tazo 3.375gm/50ml 50 ML IV SCH (00:10)
[2018-01-06] MEDS: HYDROmorphone/NS 1 mg/ml CADD 50 ML IV SCH ×3 (01:00→05:00)
[2018-01-06] MEDS: dextrose 5%-1/4 normal saline 1,000 ML IV SCH (02:53)
[2018-01-06] MEDS: metoclopramide 5 mg/ml inj IV SCH (03:08)
[2018-01-06 03:32] LABS: BASOPHILS % (AUTO) 0.1 % (0-1); EOSINOPHILS % (AUTO) 0 % (0-6); HEMATOCRIT 31.5 % (35.0-45.0); HEMOGLOBIN 10.4 g/dl (12.0-16.0); LYMPHOCYTES # (AUTO) 0.4 X10'3 (1.1-4.8); LYMPHOCYTES % (AUTO) 2.3 % (21-51); MEAN CORPUSCULAR HEMOGLOBIN 29.3 PG (27.0-31.0); MEAN CORPUSCULAR VOLUME 88.9 FL (78-98); MEAN PLATELET VOLUME 11.1 FL (7.4-10.4); MONOCYTES # (AUTO) 0.6 X10'3 (0-0.9); MONOCYTES % (AUTO) 3.5 % (2-12); NEUTROPHILS # (AUTO) 16.9 X10'3 (1.8-7.7); NEUTROPHILS % (AUTO) 94.1 % (42-75); PLATELET COUNT 118 X10'3 (140-440); RED BLOOD COUNT 3.54 X10'6 (4.20-5.60); RED CELL DISTRIBUTION WIDTH 15.2 % (11.5-14.5)
[2018-01-06 04:05] LABS: INR 1.8 INR; PROTHROMBIN TIME 18.1 SECONDS (9.0-12.0)
[2018-01-06 04:33] LABS: ALBUMIN 2.7 G/DL (3.4-5.0); ALBUMIN/GLOBULIN RATIO 1.6 (1.1-1.5); ALKALINE PHOSPHATASE 178 IU/L (46-116); ANION GAP 18 (8-16); BILIRUBIN,TOTAL 2.7 MG/DL (0.1-1.0); BLOOD UREA NITROGEN 63 MG/DL (7-18); BUN/CREATININE RATIO 13.9 (6.6-38.0); CALCIUM 7.3 MG/DL (8.5-10.1); CHLORIDE 108 MMOL/L (99-107); CREATININE 4.54 MG/DL (0.40-0.90); GLUCOSE 158 MG/DL (70-104); MAGNESIUM 3.8 MG/DL (1.5-2.4); NUCLEATED RED BLOOD CELLS 7 /100WBC (0-0); PHOSPHORUS 6.6 MG/DL (2.3-4.5); PREALBUMIN 9.6 MG/DL (19-36); SODIUM 148 MMOL/L (135-145); TOTAL CARBON DIOXIDE 22.3 MMOL/L (24-32); TOTAL CELLS COUNTED 100; TOTAL PROTEIN 4.4 G/DL (6.4-8.2); TRIGLYCERIDES 75 MG/DL (20-135); eGFR 9 ML/MIN
[2018-01-06 04:34] LABS: PLATELET ESTIMATE DECREASED
[2018-01-06 04:35] LABS: ABG BASE EXCESS -0.8 mmol/L (-2.0-3.0); ABG HCO3 23.5 mmol/L (22.0-26.0); ABG OXYGEN SATURATION 94.9 % (95-98); ABG PCO2 (T) 37.1 mmHg (32.0-45.0); ABG PH (T) 7.419 (7.350-7.450); ABG PO2 (T) 81.4 mmHg (83-108); ALLEN'S TEST Positive; FCOHb 0.3 % (0.5-1.5); FMetHb 0.3 % (0.3-1.12); FO2Hb 94.3 % (94-100); PATIENT TEMPERATURE 36.8; TOTAL HEMOGLOBIN 10.7 G/dl (12.0-16.0)
[2018-01-06 04:35] LABS: GIANT PLATELET FEW; LARGE PLATELETS FEW
[2018-01-06 04:43] LABS: POTASSIUM 3.4 MMOL/L (3.5-5.1)
[2018-01-06 05:01] LABS: ALANINE AMINOTRANSFERASE 1689 U/L (12-78); ASPARTATE AMINO TRANSFERASE 5986 U/L (10-37)
[2018-01-06] MEDS ORDERED: amiodarone/D5 360MG/200ML BAG 200 ML IV SCH (05:50)
[2018-01-06] MEDS ORDERED: amiodarone 150mg/dext, iso-os 100 ML IV ONE (05:50)
[2018-01-06] MEDS ORDERED: iohexol 350MG/ML 100ml bottle IV ONE (07:30)
== END 2018-01-06 09:53 | disposition short-term general hospital (02) | DRG 270 ==
LOC: ER 21:56 → ED HOLD 12-29 02:09 → PCU 3S 12-29 07:10 → CICU 2S 01-03 13:41
PROVIDERS: ADMIT Family Medicine
PROC: 4A02XM4 Measurement of Cardiac Total Activity, External Approach (ICD-10-PCS; 2017-12-29)
PROC: 3E033HZ Introduction of Radioactive Substance into Peripheral Vein, Percutaneous Approach (ICD-10-PCS; 2017-12-29)
PROC: 027034Z Dilation of Coronary Artery, One Artery with Drug-eluting Intraluminal Device, Percutaneous Approach (ICD-10-PCS; principal; 2017-12-30)
PROC: 4A023N8 Measurement of Cardiac Sampling and Pressure, Bilateral, Percutaneous Approach (ICD-10-PCS; 2017-12-30)
PROC: B2111ZZ Fluoroscopy of Multiple Coronary Arteries using Low Osmolar Contrast (ICD-10-PCS; 2017-12-30)
PROC: B2151ZZ Fluoroscopy of Left Heart using Low Osmolar Contrast (ICD-10-PCS; 2017-12-30)
PROC: B3101ZZ Fluoroscopy of Thoracic Aorta using Low Osmolar Contrast (ICD-10-PCS; 2017-12-30)
PROC: B4201ZZ Computerized Tomography (CT Scan) of Abdominal Aorta using Low Osmolar Contrast (ICD-10-PCS; 2018-01-01)
PROC: B4241ZZ Computerized Tomography (CT Scan) of Superior Mesenteric Artery using Low Osmolar Contrast (ICD-10-PCS; 2018-01-01)
PROC: B4281ZZ Computerized Tomography (CT Scan) of Bilateral Renal Arteries using Low Osmolar Contrast (ICD-10-PCS; 2018-01-01)
PROC: B42H1ZZ Computerized Tomography (CT Scan) of Bilateral Lower Extremity Arteries using Low Osmolar Contrast (ICD-10-PCS; 2018-01-01)
PROC: B4211ZZ Computerized Tomography (CT Scan) of Celiac Artery using Low Osmolar Contrast (ICD-10-PCS; 2018-01-01)
PROC: B42H1ZZ Computerized Tomography (CT Scan) of Bilateral Lower Extremity Arteries using Low Osmolar Contrast (ICD-10-PCS; 2018-01-01)
PROC: 04100JK Bypass Abdominal Aorta to Bilateral Femoral Arteries with Synthetic Substitute, Open Approach (ICD-10-PCS; 2018-01-03)
PROC: 04CL0ZZ Extirpation of Matter from Left Femoral Artery, Open Approach (ICD-10-PCS; 2018-01-03)
PROC: 04CK0ZZ Extirpation of Matter from Right Femoral Artery, Open Approach (ICD-10-PCS; 2018-01-03)
PROC: 0DN80ZZ Release Small Intestine, Open Approach (ICD-10-PCS; 2018-01-03)
PROC: 30233N1 Transfusion of Nonautologous Red Blood Cells into Peripheral Vein, Percutaneous Approach (ICD-10-PCS; 2018-01-03)
PROC: 04HY32Z Insertion of Monitoring Device into Lower Artery, Percutaneous Approach (ICD-10-PCS; 2018-01-03)
PROC: 05HM33Z Insertion of Infusion Device into Right Internal Jugular Vein, Percutaneous Approach (ICD-10-PCS; 2018-01-03)
PROC: B543ZZA Ultrasonography of Right Jugular Veins, Guidance (ICD-10-PCS; 2018-01-03)
PROC: 30233N1 Transfusion of Nonautologous Red Blood Cells into Peripheral Vein, Percutaneous Approach (ICD-10-PCS; 2018-01-04)
PROC: 02H633Z Insertion of Infusion Device into Right Atrium, Percutaneous Approach (ICD-10-PCS; 2018-01-05)
PROC: 5A09357 Assistance with Respiratory Ventilation, Less than 24 Consecutive Hours, Continuous Positive Airway Pressure (ICD-10-PCS; 2018-01-05)
PROC: B3251ZZ Computerized Tomography (CT Scan) of Bilateral Common Carotid Arteries using Low Osmolar Contrast (ICD-10-PCS; 2018-01-06)
PROC: B32G1ZZ Computerized Tomography (CT Scan) of Bilateral Vertebral Arteries using Low Osmolar Contrast (ICD-10-PCS; 2018-01-06)
PROC: B3201ZZ Computerized Tomography (CT Scan) of Thoracic Aorta using Low Osmolar Contrast (ICD-10-PCS; 2018-01-06)
PROC: B32R1ZZ Computerized Tomography (CT Scan) of Intracranial Arteries using Low Osmolar Contrast (ICD-10-PCS; 2018-01-06)
PROC: B3281ZZ Computerized Tomography (CT Scan) of Bilateral Internal Carotid Arteries using Low Osmolar Contrast (ICD-10-PCS; 2018-01-06)
DX: I21.4 Non-ST elevation (NSTEMI) myocardial infarction (principal); I50.31 Acute diastolic (congestive) heart failure; I63.9 Cerebral infarction, unspecified; K72.00 Acute and subacute hepatic failure without coma; J96.90 Respiratory failure, unspecified, unspecified whether with hypoxia or hypercapnia; I16.1 Hypertensive emergency; E87.0 Hyperosmolality and hypernatremia; E87.2 Acidosis; N17.9 Acute kidney failure, unspecified; I74.09 Other arterial embolism and thrombosis of abdominal aorta; I74.5 Embolism and thrombosis of iliac artery; G81.04 Flaccid hemiplegia affecting left nondominant side; I77.1 Stricture of artery; D72.829 Elevated white blood cell count, unspecified; E03.9 Hypothyroidism, unspecified; E78.00 Pure hypercholesterolemia, unspecified; E78.5 Hyperlipidemia, unspecified; G62.9 Polyneuropathy, unspecified; I25.110 Atherosclerotic heart disease of native coronary artery with unstable angina pectoris; I45.10 Unspecified right bundle-branch block; K21.9 Gastro-esophageal reflux disease without esophagitis; J44.9 Chronic obstructive pulmonary disease, unspecified; G89.29 Other chronic pain; M54.9 Dorsalgia, unspecified; R19.7 Diarrhea, unspecified; M19.90 Unspecified osteoarthritis, unspecified site; K30 Functional dyspepsia; I11.0 Hypertensive heart disease with heart failure; I70.213 Atherosclerosis of native arteries of extremities with intermittent claudication, bilateral legs; F41.9 Anxiety disorder, unspecified; F32.9 Major depressive disorder, single episode, unspecified; F17.200 Nicotine dependence, unspecified, uncomplicated; K66.0 Peritoneal adhesions (postprocedural) (postinfection); I65.23 Occlusion and stenosis of bilateral carotid arteries; Z90.49 Acquired absence of other specified parts of digestive tract; Z90.710 Acquired absence of both cervix and uterus; Z88.6 Allergy status to analgesic agent; Z88.8 Allergy status to other drugs, medicaments and biological substances; Z91.030 Bee allergy status; Z79.899 Other long term (current) drug therapy; Z79.890 Hormone replacement therapy; Z72.89 Other problems related to lifestyle; Z71.6 Tobacco abuse counseling
CPT/HCPCS: 36245; 36569; 93306; 93460; 99285; C9600; 36415; 36600; 70450; 71045; 71046; 74018; 74021; 74176; 75625; 75635; 76937; 78452; 80048; 80053; 80061; 81001; 82330; 82803; 82810; 82948; 83605; 83735; 83880; 84100; 84134; 84145; 84439; 84443; 84478; 84480; 84484; 85014; 85018; 85025; 85347; 85610; 85730; 86885; 86900; 86901; 86920; 87040; 87070; 87205; 88300; 88304; 93005; 93017; 93922; 93925; 93975; 94002; 94003; 94660; 94760; 99152; 99153; A4344; A4620; A6253; A6257; A6449; A7000; A9500; C1725; C1758; C1760; C1768; C1769; C1874; C1894; G0378; J0280; J0282; J0461; J0610; J0690; J1170; J1580; J1644; J1940; J2250; J2310; J2543; J2704; J2765; J3010; J3475; J3490; J7030; J7120; P9016; P9045; P9047; Q9963; Q9967